=== PATIENT | female | born 1995 | race African-American/Black ===

== ENCOUNTER 2016-06-27 12:10 | Emergency (ER) | payer OTHER ==
[2016-06-27 12:16] VITALS: BP 148/75; PULSE 86; TEMP 98.1; BMI 24.5
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
== END 2016-06-27 14:37 | disposition home or self-care (01) ==
LOC: JERFT 12:10
DX: S83.411A Sprain of medial collateral ligament of right knee, initial encounter (principal); W22.8XXA Striking against or struck by other objects, initial encounter; Y93.89 Activity, other specified; Y92.414 Local residential or business street as the place of occurrence of the external cause; Y99.8 Other external cause status; F17.210 Nicotine dependence, cigarettes, uncomplicated
CPT/HCPCS: 73562-TC-LT; 84703; 99281-25

== ENCOUNTER 2017-02-25 12:45 | Emergency (ER) | payer OTHER ==
[2017-02-25 13:06] VITALS: BP 127/58; PULSE 84; TEMP 98.5; BMI 24.5
[2017-02-25 13:57] LABS: URINE APPEARANCE SLCLOUDY; URINE BILIRUBIN NEGATIVE (NEGATIVE); URINE BLOOD NEGATIVE (NEGATIVE); URINE COLOR STRAW; URINE GLUCOSE (UA) NEGATIVE (NEGATIVE); URINE KETONE NEGATIVE (NEGATIVE); URINE LEUK ESTERASE NEGATIVE (NEGATIVE); URINE NITRITE NEGATIVE (NEGATIVE); URINE PROTEIN NEGATIVE (NEGATIVE); URINE UROBILINOGEN NEGATIVE mg/dL (0.2-1.0)
[2017-02-25] MEDS ORDERED: AZITHROMYCIN 1 GM PACKET PO ONE (14:46)
--- NOTE | 2017-02-25 14:47 | PDOC ---
History of Present Illness - General Chief Complaint: Vaginal Sxs Stated Complaint: VAGINAL DISCHARGE Time Seen by Provider: 02/25/17 13:34 History Source: Patient Exam Limitations: No Limitations - History of Present Illness Initial Comments: 02/25/17 14:42 Patient is a [21-year-old female, denies any significant medical history presents for evaluation of vaginal discharge patient reports thick white discharge with odor. Lower abdominal discomfort. Patient reports recently having unprotected sex with a new partner. Wants to be checked for bacterial infection. ] Past Medical History: [Denies]. Allergies: No known allergies Medications: [None] Family History: Non-contributory Social History: Denies smoking, alcohol use, or IVDU Vital signs on arrival are [notable for pulse of 96.] Review of Systems GENERAL/CONSTITUTIONAL: [No fever or chills. No weakness. No weight change.] HEAD, EYES, EARS, NOSE AND THROAT: [No change in vision. No ear pain or discharge. No sore throat. ] CARDIOVASCULAR: [No chest pain or shortness of breath.] RESPIRATORY: [No cough, wheezing, or hemoptysis.] GASTROINTESTINAL: [No nausea, vomiting, diarrhea or constipation. No rectal bleeding.] GENITOURINARY: [No dysuria, frequency, or change in urination. Vaginal discharge with odor. ] MUSCULOSKELETAL: [No joint or muscle swelling or pain. No neck or back pain.] SKIN AND BREASTS: [No rash or easy bruising.] NEUROLOGIC: [No headache, vertigo, loss of consciousness, or loss of sensation.] PSYCHIATRIC: [No depression or anxiety.] ENDOCRINE: [No increased thirst. No abnormal weight change.] HEMATOLOGIC/LYMPHATIC: [No anemia, easy bleeding, or history of blood clots.] ALLERGIC/IMMUNOLOGIC: [No hives or skin allergy. No latex allergy.] Physical Exam: GENERAL: [The patient is awake, alert, and fully oriented, in no acute distress. ] HEAD: [Normal with no signs of trauma.] EYES: [Pupils equal, round and reactive to light, extraocular movements intact, sclera anicteric, conjunctiva clear.] ENT: [Ears normal, nares patent, oropharynx clear without exudates. Moist mucous membranes. No uvula deviation] NECK: [Normal range of motion, supple without lymphadenopathy, JVD, or masses.] LUNGS: [Breath sounds equal, clear to auscultation bilaterally. No wheezes, and no crackles.] HEART: [Regular rate and rhythm, normal S1 and S2 without murmur, rub or gallop. ] ABDOMEN: [Soft, nontender, normoactive bowel sounds. No guarding, no rebound. No masses. No bruising or abrasions] GENITALIA: White discharge, cervical os closed, non friable. no CMT MUSCULOSKELETAL: [Normal range of motion, no edema. No clubbing or cyanosis. No cords, erythema, or tenderness. No CVA Tenderness with fist.] NEUROLOGICAL: [Cranial nerves II through XII grossly intact. Normal speech, normal gait.] SKIN: [Warm, Dry, normal turgor, no rashes or lesions noted.] 02/25/17 16:59 Past History - Past Medical History Allergies/Adverse Reactions: Allergies Allergy/AdvReac Type Severity Reaction Status Date / Time No Known Allergies Allergy Verified 02/25/17 13:02 Home Medications: Ambulatory Orders Fluconazole [Diflucan] 150 mg PO ONCE #1 tablet 02/25/17 CVA: No COPD: No DVT: No Dementia: No - Surgical History Abdominal Surgery: Yes (R OOPHORECTOMY) - Immunization History Immunization Up to Date: Yes - Suicide/Smoking/Psychosocial Hx Smoking History: Former smoker Have you smoked in the past 12 months: No Number of Cigarettes Smoked Daily: 10 If you are a former smoker, when did you quit?: 1yr Information on smoking cessation initiated: No 'Breaking Loose' booklet given: 06/27/16 Hx Alcohol Use: No Drug/Substance Use Hx: No Substance Use Type: None *Physical Exam - Vital Signs Last Vital Signs Temp Pulse Resp BP Pulse Ox 98.5 F 84 16 127/58 100 02/25/17 13:02 02/25/17 13:02 02/25/17 13:02 02/25/17 13:02 02/25/17 13:02 ED Treatment Course - ADDITIONAL ORDERS Additional order review: Laboratory Results 02/25/17 13:35 Urine Color Straw Urine Appearance Slcloudy Urine pH 8.0 D Ur Specific [place] 1.012 Urine Protein Negative Urine Glucose (UA) Negative Urine Ketones Negative Urine Blood Negative Urine Nitrite Negative Urine Bilirubin Negative Urine Urobilinogen Negative Urine HCG, Qual Negative Medical Decision Making - Medical Decision Making 02/25/17 14:45 A/P: Patient here for evaluation of vaginal discharge concerned because she has been having unprotected sex genital culture and gonorrhea chlamydia sent, there is no evidence of BV and no followed or no obtained discharge. Patient is requesting oral medication for vaginitis. We'll give Diflucan, will also treat for STDs because of risk behavior. Patient is refusing HIV testing. Rocephin 250 mg IM and azithromycin 1 g by mouth ordered, prescription for Diflucan sent. Patient to call in one week for results of STD testing. Urinalysis is unremarkable. Patient eloped from emergency department on 8 able to give discharge instructions 02/25/17 16:59 Laboratory Results - last 24 hr 02/25/17 13:35 Urine Color Straw Urine Appearance Slcloudy Urine pH 8.0 D Ur Specific [place] 1.012 Urine Protein Negative Urine Glucose (UA) Negative Urine Ketones Negative Urine Blood Negative Urine Nitrite Negative Urine Bilirubin Negative Urine Urobilinogen Negative Urine HCG, Qual Negative *DC/Admit/Observation/Transfer Diagnosis at time of Disposition: Vaginal discharge - Discharge Dispostion Disposition: ELOPED Condition at time of disposition: Good Admit: No - Prescriptions Prescriptions: Fluconazole [Diflucan] 150 mg PO ONCE #1 tablet - Referrals Referrals: Edie Aguilar [Primary Care Provider] - - Patient Instructions Printed Discharge Instructions: DI for Vaginal Discharge Additional Instructions: PLease call [phone] in one week for results of culture. PLease refrain from sex for one week. Follow up with [facility] if symptoms persist. Symptoms should start to resolve in several days. - Post Discharge Activity Forms/Work/School Notes: Back to Work
[2017-02-25] MEDS ORDERED: AZITHROMYCIN 250 MG TABLET ONE (15:26)
[2017-02-25 20:03] LABS: URINE LEUK ESTERASE Negative (NEGATIVE)
== END 2017-02-25 15:43 | disposition left against medical advice (07) ==
LOC: JERFT 12:45
DX: N89.8 Other specified noninflammatory disorders of vagina (principal)
CPT/HCPCS: 36415; 81003; 84703; 87070; 87086; 87205; 87491; 87591; 99281-25

== ENCOUNTER 2021-03-21 12:39 | Emergency (ER) | payer OTHER ==
[2021-03-21] MEDS ORDERED: DOXYCYCLINE HYCLATE 100 MG CAPSULE PO ONE (13:03)
[2021-03-21 13:05] VITALS: BP 124/76; PULSE 78; TEMP 98.9; BMI 31.1
[2021-03-21] MEDS ORDERED: DOXYCYCLINE HYCLATE 100 MG TABLET PO ONE (13:11)
[2021-03-21 13:19] LABS: HCG,QUALITATIVE URINE Negative
== END 2021-03-21 13:42 | disposition home or self-care (01) ==
LOC: FER 12:39
PROC: 3E023GC Introduction of Other Therapeutic Substance into Muscle, Percutaneous Approach (ICD-10-PCS; principal; 2021-03-21)
DX: N76.0 Acute vaginitis (principal)
CPT/HCPCS: 36415; 81003; 84703; 87077; 87086; 87491; 87591; 99284-25

== ENCOUNTER 2021-12-13 18:31 | Emergency (ER) | payer OTHER ==
[2021-12-13 19:07] VITALS: BP 122/71; PULSE 71; RESP 18; TEMP 98.7; BMI 29.2
== END 2021-12-13 19:50 | disposition home or self-care (01) ==
LOC: FER 18:31
DX: S29.012A Strain of muscle and tendon of back wall of thorax, initial encounter (principal); Y04.8XXA Assault by other bodily force, initial encounter
CPT/HCPCS: 99283-25

== ENCOUNTER 2022-04-30 07:59 | Emergency (ER) | payer OTHER ==
[2022-04-30 08:12] VITALS: BP 117/64; PULSE 75; RESP 19; TEMP 98.2; BMI 26.5
[2022-04-30 09:25] LABS: URINE APPEARANCE CLEAR; URINE BILIRUBIN NEGATIVE (NEGATIVE); URINE COLOR YELLOW; URINE GLUCOSE (UA) NEGATIVE (NEGATIVE); URINE KETONE NEGATIVE (NEGATIVE); URINE LEUK ESTERASE NEGATIVE (NEGATIVE); URINE NITRITE NEGATIVE (NEGATIVE); URINE PROTEIN NEGATIVE (NEGATIVE); URINE UROBILINOGEN 0.2 mg/dL (0.2-1.0)
[2022-04-30 09:27] LABS: HCG,QUALITATIVE URINE Negative
[2022-04-30] MEDS ORDERED: cefTRIAXone SODIUM 1 GM VIAL ONE (09:47)
[2022-04-30] MEDS ORDERED: LIDOCAINE HCL 1%, 10 MG/ML (20ML VIAL) ONE (09:47)
[2022-05-01 20:57] LABS: SYPHILIS W/ RPR CONF NON-REACTIVE (NONREACTIVE)
[2022-05-01 21:26] LABS: HIV INTERPRETATION NEGATIVE (NEGATIVE)
== END 2022-04-30 09:56 | disposition home or self-care (01) ==
LOC: JERFT 07:59
DX: R35.0 Frequency of micturition (principal); R39.15 Urgency of urination; Z20.2 Contact with and (suspected) exposure to infections with a predominantly sexual mode of transmission
CPT/HCPCS: 36415; 81003; 84703; 86780; 87086; 87389; 87491; 87591; 99284-25

== ENCOUNTER 2023-01-02 21:25 | Emergency (ER) | payer OTHER ==
[2023-01-02 21:38] VITALS: BP 123/69; PULSE 84; RESP 18; TEMP 98.1; BMI 29.2
[2023-01-02 22:33] LABS: PH,URINE 6.5 (5.0-8.0); URINE APPEARANCE CLEAR; URINE BILIRUBIN NEGATIVE (NEGATIVE); URINE COLOR YELLOW; URINE GLUCOSE (UA) NEGATIVE (NEGATIVE); URINE KETONE NEGATIVE (NEGATIVE); URINE LEUK ESTERASE NEGATIVE (NEGATIVE); URINE NITRITE NEGATIVE (NEGATIVE); URINE PROTEIN NEGATIVE (NEGATIVE)
[2023-01-02 22:35] LABS: HCG,QUALITATIVE URINE Negative
== END 2023-01-02 23:18 | disposition home or self-care (01) ==
LOC: JERFT 21:25
DX: R10.2 Pelvic and perineal pain (principal)
CPT/HCPCS: 36415; 81003; 84703; 87086; 87491; 87591; 99283-25

== ENCOUNTER 2023-09-08 13:23 | Emergency (ER) | payer OTHER ==
[2023-09-08 13:31] VITALS: BP 134/86; PULSE 110; RESP 18; TEMP 98.2; BMI 32.9
[2023-09-08 14:53] LABS: PH,URINE 5.5 (5.0-8.0); URINE APPEARANCE Clear; URINE BILIRUBIN 1+ (NEGATIVE); URINE COLOR Yellow; URINE GLUCOSE (UA) Negative (NEGATIVE); URINE KETONE 1+ (NEGATIVE); URINE LEUK ESTERASE Negative (NEGATIVE); URINE NITRITE Negative (NEGATIVE); URINE PROTEIN 1+ (NEGATIVE)
[2023-09-08 15:17] LABS: EPI CELLS 57 /uL (0-25.1); URINE RBC 47 /uL (0-23.9); URINE WBC 34 /uL (0-25.8)
[2023-09-08 15:18] LABS: HYALINE CASTS 5 /uL (0-3.1); URINE BACTERIA 618 /uL (0-1359)
== END 2023-09-08 14:35 | disposition home or self-care (01) ==
LOC: JERFT 13:23
DX: N76.0 Acute vaginitis (principal); N89.8 Other specified noninflammatory disorders of vagina
CPT/HCPCS: 36415; 81003; 84703; 87086; 87491; 87591; 99283-25

== ENCOUNTER 2024-08-10 11:08 | Emergency (ER) | payer OTHER ==
[2024-08-10 11:26] VITALS: BP 111/54; PULSE 78; RESP 18; TEMP 98; BMI 31.8
[2024-08-10 12:51] LABS: PH,URINE 6.5 (5.0-8.0); URINE APPEARANCE CLEAR; URINE BILIRUBIN NEGATIVE (NEGATIVE); URINE COLOR YELLOW; URINE GLUCOSE (UA) NEGATIVE (NEGATIVE); URINE KETONE NEGATIVE (NEGATIVE); URINE LEUK ESTERASE NEGATIVE (NEGATIVE); URINE NITRITE NEGATIVE (NEGATIVE); URINE PROTEIN NEGATIVE (NEGATIVE); URINE UROBILINOGEN 0.2 mg/dL (0.2-1.0)
[2024-08-10 14:15] LABS: SYPHILIS W/ RPR CONF NON-REACTIVE (NONREACTIVE)
[2024-08-10 14:44] LABS: HIV INTERPRETATION NEGATIVE (NEGATIVE)
== END 2024-08-10 13:48 | disposition home or self-care (01) ==
LOC: JERFT 11:08
DX: N76.0 Acute vaginitis (principal); R35.0 Frequency of micturition; R30.9 Painful micturition, unspecified
CPT/HCPCS: 36415; 81003; 84703; 86780; 87070; 87077; 87086; 87205; 87389; 87491; 87591; 87661; 99283-25